=== PATIENT | male | born 1980 ===

== ENCOUNTER 2019-02-18 16:36 | Emergency (ER) | payer MEDICAID ==
[2019-02-18 17:04] VITALS: BP 146/81; PULSE 88; TEMP 98
[2019-02-18 18:01] VITALS: RESP 18; O2SAT 96
--- NOTE | 2019-02-18 18:45 | ED PDOC ---
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 Patient notes that he was at rest when it began, and it spontaneously resolved on its own. Otherwise, denies cough, fever, and cardiac history. 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) Denies: Chronic Kidney Disease - Surgical History Other surgeries: left elbow; eye cancer removal - Family History Family History: States: Unknown Family Hx - Social History Current smoker - smoking cessation education provided: Yes (10 daily) Alcohol: Social Drugs: Denies - Immunization History Hx Tetanus Toxoid Vaccination: No Hx Influenza Vaccination: No Hx Pneumococcal Vaccination: No - Allergies Allergies/Adverse Reactions: Allergies Allergy/AdvReac Type Severity Reaction Status Date / Time No Known Allergies Allergy Verified 02/18/19 17:04 Review of Systems ROS Statement: Except As Marked, All Systems Reviewed And Found Negative Constitutional: Negative for: Fever Cardiovascular: Positive for: Palpitations, Other (chest tightness) Respiratory: Positive for: Shortness of Breath. Negative for: Cough Physical Exam - Reviewed Nursing Documentation Reviewed: Yes Vital Signs Reviewed: Yes - Physical Exam Appears: Positive for: No Acute Distress (but thin appearing) Head Exam: Positive for: ATRAUMATIC, NORMOCEPHALIC Skin: Positive for: Normal Color, Warm Eye Exam: Positive for: Normal appearance ENT: Positive for: Normal ENT Inspection Neck: Positive for: Normal, Painless ROM, Supple Cardiovascular/Chest: Positive for: Regular Rate, Rhythm Respiratory: Positive for: Normal Breath Sounds. Negative for: Respiratory Distress Gastrointestinal/Abdominal: Positive for: Normal Exam, Soft. Negative for: Tenderness Back: Positive for: Normal Inspection Extremity: Positive for: Normal ROM (all extremities) Neurological/Psych: Positive for: Awake, Alert, Oriented (x3). Negative for: Motor/Sensory Deficits - ECG ECG: Positive for: Interpreted By Me, Viewed By Me ECG Rhythm: Positive for: Normal ST Segment, Sinus Rhythm (normal at 61bpm). Negative for: ST/T Changes O2 Sat by Pulse Oximetry: 96 (RA) Pulse Ox Interpretation: Normal Medical Decision Making Medical Decision Making: Time: 1838 Initial Impression: shortness of breath Initial Plan: --EKG --CMP --Trop I --CBC with differential --CXR 1899 Patient care endorsed to Dr. Timmons pending workup and reevaluation. Scribe Attestation: Documented by Michelle Pollack, acting as a scribe for Gareth Godinez MD. Provider Scribe Attestation: All medical record entries made by the Scribe were at my direction and perso monica dictated by me. I have reviewed the chart and agree that the record accurately reflects my personal performance of the history, physical exam, medical decision making, and the department course for this patient. I have also personally directed, reviewed, and agree with the discharge instructions and disposition. Disposition - Clinical Impression Clinical Impression: Shortness of breath - Patient ED Disposition Is Patient to be Admitted: Transfer of Care - Disposition Disposition: Transfer of Care Disposition Time: 19:00 Condition: STABLE Forms: [employer] (Tongan) Patient Signed Over To: Wilmer Timmons
--- NOTE | 2019-02-18 19:50 | ED PDOC ---
- ECG O2 Sat by Pulse Oximetry: 96 (RA) Medical Decision Making Medical Decision Makin Patient care endorsed from Dr. Godinez to this provider pending workup and reevaluation. Before ever being able to see patient however, he refused further evaluation/ blood work, and left before treatment completed. Scribe Attestation: Documented by Michelle Pollack, acting as a scribe for Wilmer Timmons MD. Provider Scribe Attestation: All medical record entries made by the Scribe were at my direction and personally dictated by me. I have reviewed the chart and agree that the record accurately reflects my personal performance of the history, physical exam, medical decision making, and the department course for this patient. I have also personally directed, reviewed, and agree with the discharge instructions and disposition. Disposition - Clinical Impression Clinical Impression: Shortness of breath - POA Present On Arrival: None - Disposition Disposition: Eloped Disposition Time: 19:20 Condition: UNKNOWN Forms: [employer] (Spanish)
--- NOTE | 2019-02-19 09:11 | RAD ---
Date of service: 02/18/2019 HISTORY: Chest pain COMPARISON: No prior. TECHNIQUE: Chest PA and lateral FINDINGS: LINES AND TUBES: None. LUNG AND PLEURA: The lungs are well inflated and clear. There is a small calcified granuloma in the peripheral left mid lung. No pleural effusion or pneumothorax. HEART AND MEDIASTINUM: The heart is not enlarged. No aortic atherosclerotic calcifications present. The hilar and mediastinal contours are within normal limits. SKELETAL STRUCTURES: The bony structures are within normal limits for the patient's age. VISUALIZED UPPER ABDOMEN: Normal. OTHER FINDINGS: None. IMPRESSION: No active pulmonary disease.
--- NOTE | 2019-02-19 09:22 | CARD ---
APPROVED REPORT Date of service: 02/18/2019 EKG Measurement Heart [id number] <Conclusion> Normal sinus rhythm Normal ECG
== END 2019-02-18 19:20 | disposition left against medical advice (07) ==
LOC: H.ER 16:36
DX: R06.02 Shortness of breath (principal); F17.200 Nicotine dependence, unspecified, uncomplicated; R07.89 Other chest pain